=== PATIENT | female | born 1940 | race Caucasian/White ===

== ENCOUNTER 2021-12-30 06:50 | Observation (INO) ==
[2021-12-30 07:59] LABS: Albumin 3.6 G/DL (3.4-5.0); Bilirubin,Total 1.1 MG/DL (0.20-1.00); Calcium 9.9 MG/DL (8.5-10.1); Osmolality,Calculated 276.7 MOS/KG (273-304); Total Protein 7.9 G/DL (6.4-8.2)
[2021-12-30 08:02] LABS: Basophils % 0.2 % (0.0-0.8); Eosinophils % 0.5 % (0.00-10.9); Hematocrit 45.5 VOL% (35.7-47.0); Hemoglobin 14.6 GM/DL (12.0-16.0); Immature Granulocytes % 0.4 %; Immature Granulocytes Absolute 0.03 #; Lymphocytes # 1.6 10*3/uL (1.4-4.0); Lymphocytes % 19.1 % (21.3-54.2); Mean Corpuscular HGB Conc 32.1 GM/DL (32-36); Mean Corpuscular Volume 93.6 FL (87-102); Mean Platelet Volume 10.7 FL (9.6-12.0); Monocytes % 6.6 % (1.7-12.7); Neutrophils % 73.2 % (38.7-73.9); Platelet Count 218 T/CUMM (130-400); Red Blood Count 4.86 MC/CUMM (3.8-5.5); Red Cell Distribution Width 13.1 % (9.3-17.3); White Blood Count 8.4 T/CUMM (4-12)
[2021-12-30 08:38] LABS: Bacteria,Urine Occasional /HPF (Few); Mucus,Urine Occasional /LPF (Occasional); RBC,Urine 11 /HPF (0-4); Squamous Epithelial Cell,Urine Few /HPF (0-10)
[2021-12-30 08:40] LABS: Bilirubin,Urine Negative (Negative); Glucose,Urine (UA) Negative (Negative); Ketones,Urine Trace mg/dL (Negative); Nitrite,Urine Negative (Negative); Protein,Urine 30 mg/dL (Negative); Urine Appearance Clear (Clear); Urine Color Yellow (Yellow); Urine Specific Gravity > 1.030 (1.001-1.035); Urine pH 5.5 (4.5-8.0)
[2021-12-30 08:41] LABS: Blood, Urine Negative (Negative); Calcium Oxalate Crystals,Urine Few /HPF (Few); Urine Urobilinogen 0.2 eU/dL (<2.0)
[2021-12-30] MEDS ORDERED: ASPIRIN 325 MG TABLET PO STA (08:47)
[2021-12-30] MEDS ORDERED: GLUCAGON 1 MG VIAL IM PRN (10:56)
[2021-12-30] MEDS ORDERED: ONDANSETRON 4 MG/2 ML VIAL IV PRN (10:56)
[2021-12-30] MEDS ORDERED: ENOXAPARIN 40 MG/0.4 ML SYRINGE SUBCUT SCH (11:00)
[2021-12-30] MEDS ORDERED: DEXTROSE 10% 250 ML BAG IV PRN (11:08)
[2021-12-30] MEDS ORDERED: amLODIPine 5 MG TABLET PO ONE (14:36)
[2021-12-30] MEDS ORDERED: hydrALAZINE 20 MG/1 ML VIAL IV PRN (15:21)
[2021-12-30] MEDS ORDERED: KETOROLAC 30 MG/1 ML VIAL IV STA (15:21)
[2021-12-31 04:57] LABS: Basophils % 0.1 % (0.0-0.8); Eosinophils # 0.1 10*3/uL (0.0-0.87); Eosinophils % 1.1 % (0.00-10.9); Hematocrit 43.7 VOL% (35.7-47.0); Hemoglobin 14.3 GM/DL (12.0-16.0); Immature Granulocytes % 0.5 %; Immature Granulocytes Absolute 0.05 #; Lymphocytes # 1.6 10*3/uL (1.4-4.0); Mean Corpuscular HGB Conc 32.7 GM/DL (32-36); Mean Corpuscular Volume 92.4 FL (87-102); Monocytes % 7.1 % (1.7-12.7); Neutrophils % 73.2 % (38.7-73.9); Platelet Count 208 T/CUMM (130-400); Red Blood Count 4.73 MC/CUMM (3.8-5.5); White Blood Count 9.1 T/CUMM (4-12)
[2021-12-31 05:23] LABS: Albumin 3.2 G/DL (3.4-5.0); Bilirubin,Total 1.5 MG/DL (0.20-1.00); Calcium 9.2 MG/DL (8.5-10.1); Osmolality,Calculated 276.7 MOS/KG (273-304); Potassium 3.3 MMOL/L (3.5-5.1); Risk Ratio 3.66; Total Protein 7.2 G/DL (6.4-8.2); VLDL Cholesterol 26.8 MG/DL
[2021-12-31] MEDS ORDERED: POTASSIUM CHLORIDE 20 MEQ TABLET PO ONE (07:44)
[2021-12-31 07:55] VITALS: BP 151/65
[2021-12-31] MEDS ORDERED: PANTOPRAZOLE 40 MG TABLET PO SCH (09:00)
[2021-12-31] MEDS ORDERED: SPIRONOLACTONE 25 MG TABLET PO SCH (09:00)
[2021-12-31] MEDS ORDERED: ESCITALOPRAM 10 MG TABLET PO SCH (09:00)
[2021-12-31] MEDS ORDERED: VALSARTAN 160 MG TABLET PO SCH (09:00)
[2021-12-31] MEDS ORDERED: ASPIRIN EC 81 MG TABLET PO SCH (09:00)
== END 2021-12-31 11:00 | disposition home or self-care (01) ==
LOC: N.ED 06:50 → N.EDINP 06:50 → N.TELEN 17:39
PROVIDERS: ADMIT Emergency Medicine; ATTEND Emergency Medicine